=== PATIENT | female | born 1955 | race Caucasian/White ===

== ENCOUNTER → 2017-03-03 | Outpatient (CLI) | payer BC, OTHER ==
--- NOTE | 2017-03-07 17:09 | MAM ---
EXAM DESCRIPTION: 3D Screening BILATERAL : Digital Mammography. CLINICAL HISTORY: 62 years Female SCREENING . No complaints. No family history of breast cancer. Postmenopausal. Currently on HRT.. COMPARISON: 2-D digital screening bilateral studies on 02/10/2016 and 02/11/2010.. Report from prior examination also reviewed. TECHNIQUE: Bilateral CC and MLO projection full-field images, 3-D tomosynthesis digital mammographic technique. Also bilateral synthesized CC/ MLO full-field images. CAD not utilized. FINDINGS: The breast parenchymal density pattern is: Scattered areas of fibroglandular density. No skin thickening or nipple retraction . Bilateral study solitary microcalcifications. Focal asymmetry in the middle third of the upper outer quadrant of the left breast at the 230 clock position approximately 6 cm from the nipple. Not associated with microcalcifications. Gradually increasing in density comparing to the prior mammograms. No focal, stellate mass or density, focal asymmetry , and no suspicious microcalcifications right breast. IMPRESSION: BI-RADS CATEGORY: 0 - INCOMPLETE- Need additional imaging evaluation. FOLLOW-UP: Recall for additional imagin-D tomosynthesis left breast full field imaging LM projection of the region of interest followed by targeted left breast ultrasound.. Written communication concerning the IMPRESSION and Follow-up, will be mailed to the patient and referring health care provider. Electronically signed by: Patrick Pelletier MD 03/07/2017 5:07 PM [employer]
== END ==
LOC: MAMMO 09:39
PROVIDERS: ATTEND Family Medicine
DX: Z12.31 Encounter for screening mammogram for malignant neoplasm of breast (principal)
CPT/HCPCS: 77063; G0202

== ENCOUNTER → 2017-09-14 | Outpatient (CLI) | payer OTHER ==
--- NOTE | 2017-09-14 11:53 | US ---
EXAM DESCRIPTION: Breast,Left: Ultrasound CLINICAL HISTORY: 62 yearsFemale6 MONTH FOLLOW UP COMPARISON: Digital diagnostic 3-D tomosynthesis left mammography on this visit. Prior targeted left breast ultrasound and 3-D tomosynthesis left breast mammography 03/24/2017. TECHNIQUE: Transcutaneous scanning of the left breast utilizing sorenson-scale and Doppler modes. Scanning performed by the roll former and Dr. Pelletier. FINDINGS: Scanning the left breast 200-300 clock position 5 cm from the nipple. Superior layer of fatty tissue with a more posterior layer of fibroglandular tissue. More posterior and heterogeneous fatty echotexture anterior to the chest wall. No distinct solid mass or cyst. No large calcifications or parenchymal edema. No overlying skin changes. No abnormal vascularity. Stable appearance since the prior study. IMPRESSION: 1. Bi-Rads Category 3: Probably Benign Findings. 2. Please refer to digital diagnostic 3-D tomosynthesis mammography and report of the left breast on this visit. The FINDINGS and the FOLLOW-UP plan were reviewed in person with the patient after the examination. Written communication explaining the IMPRESSION and FOLLOW-UP will be mailed to the patient and referring care provider. Electronically signed by: Patrick Pelletier MD 09/14/2017 11:51 AM CDT
--- NOTE | 2017-09-14 11:54 | MAM ---
EXAM DESCRIPTION: 3D Diagnostic, Left: Digital Mammography CLINICAL HISTORY: 62 yearsFemaleABN SCREEN focal asymmetry lateral upper outer quadrant middle third left breast.. COMPARISON: 3-D Carmen synthesis diagnostic left mammogram and targeted ultrasound 03/24/2017. Reports from prior examinations also reviewed. TECHNIQUE: Left CC LM MLO projection full-field images, 3-D tomosynthesis digital mammographic technique. CAD not utilized. FINDINGS: Left breast parenchymal density pattern is: Scattered areas of fibroglandular density. No skin thickening or nipple retraction focal asymmetry is again noted in the upper outer quadrant of the middle third of the left breast at the 200-300 clock position approximately 5 cm from the nipple. Appears stable since the prior study. Not associated with calcifications and no definite mass density. Left axillary lymph node. ULTRASOUND: Scanning the left breast 200-300 clock position 5 cm from the nipple. Superior layer of fatty tissue with a more posterior layer of fibroglandular tissue. More posterior and heterogeneous fatty echotexture anterior to the chest wall. No distinct solid mass or cyst. No large calcifications or parenchymal edema. No overlying skin changes. No abnormal vascularity. Stable appearance since the prior study. IMPRESSION: BI-RADS CATEGORY: 3 - PROBABLY BENIGN. Management: Short interval (February 2018) follow-up left breast digital diagnostic mammography and targeted ultrasound, with routine digital mammographic follow-up of the right breast. The FINDINGS and the FOLLOW-UP plan were reviewed in person with the patient after the examination. Written communication explaining the IMPRESSION and FOLLOW-UP will be mailed to the patient and referring care provider. Electronically signed by: Patrick Pelletier MD 09/14/2017 11:52 AM CDT
== END ==
LOC: MAMMO 10:05
PROVIDERS: ATTEND Family Medicine
DX: R92.8 Other abnormal and inconclusive findings on diagnostic imaging of breast (principal)
CPT/HCPCS: 76641; 77065; G0279